=== PATIENT | male | born 1945 | race Caucasian/White ===

== ENCOUNTER 2018-06-11 05:25 | Day surgery (SDC) | payer OTHER ==
[~2018-06-11] VITALS: Ht 195.6 cm; Wt 104.3 kg
--- NOTE | ~2018-06-11 | O ---
[facility] [place] [address] OPERATIVE REPORT Name: REN BURT Room #: 150-2 [facility]#: [id number] Admission: 06/11/18 Attend Phys: Eugene Najera MD Discharge: Date of : 47 Report #: [id number] THIS REPORT FOR: //name// CC: Shaun Najera DATE OF SERVICE: 06/11/[address] Eugene Najera and Dr. Shaun Chen. PREOPERATIVE DIAGNOSIS: Left inguinal hernia. POSTOPERATIVE DIAGNOSIS: Left inguinal hernia. PROCEDURE: Left inguinal hernia repair with Prolene hernia system mesh. SURGEON: Eugene Najera MD ANESTHESIA: Local IV sedation. DESCRIPTION OF PROCEDURE: The patient was brought to the operating room and placed on the operative table in the supine position. Sequential compression devices were in place for DVT prophylaxis. There was no indication for preoperative antibiotics. The patient underwent IV sedation. Left inguinal area was prepped and draped in a sterile fashion. Skin and subcutaneous tissue were then infiltrated with 0.5% Marcaine and 1% Xylocaine in a 1:1 mixture. A left inguinal skin incision was then performed using #10 scalpel blade. Hemostasis obtained using electrocautery as well as clamps and 2-0 chromic ties. The external oblique fascia was then identified and incised with a knife and opened with the Metzenbaum scissors. The ilioinguinal nerve was identified, dissected free, injected with the local mixture and preserved. The cord was then elevated, held in place with a Teto drain. Cremasteric muscle fibers were then split in the direction of fibers using clamp and electrocautery. There was no indirect inguinal hernia sac. The floor was inspected and there was a moderate sized direct inguinal hernia defect. This hernia sac was dissected free from the cord and then opened just above the level of the floor and reduced back through the floor into the preperitoneal space, which was then developed with blunt dissection. An extended Prolene hernia system mesh was then inserted through the floor and the underlay patch was then deployed in the preperitoneal space and the connector left in the floor. Floor was then tightened around the connector using running 2-0 Prolene two layer shouldice repair. The overlay patch was then deployed into the inguinal canal and was secured at the pubic tubercle with the same running 2-0 Prolene suture. Mesh was secured superiorly and at the connector using simple interrupted 2-0 Vicryl sutures. The mesh was split and wrapped around the cord, secured to the [address] [address] OPERATIVE REPORT Name: REN BURT Room #: 150-2 [facility]..#: [id number] Admission: 06/11/18 Attend Phys: Eugene Najera MD Discharge: Date of : 47 Report #: [id number] inguinal ligament with the 2-0 Vicryl suture. The cord and the ilioinguinal nerve were then returned to the canal intact. The external oblique fascia was then closed using running 2-0 Vicryl suture. Poncho's fascia was then reapproximated using 3 simple interrupted 2-0 chromic sutures and the skin then closed with a running 4-0 subcuticular Vicryl stitch. The wound was then dressed with Mastisol, 1/2-inch Steri-Strips cut in half, Telfa, 4 x 4 gauze, sponge and tape. The patient was then awakened from the IV sedation, taken to recovery room awake, alert and in good condition. Estimated blood loss was approximately 5 mL and the patient tolerated procedure well. All sponge, lap and instrument counts correct x 2. <ELECTRONICALLY SIGNED> By: Eugene Najera MD 06/11/18 1433 [id number] Eugene Najera MD /nt
[~2018-06-11 05:25] MED LIST: ALLERGY10 M2 PO; ASPIR 8181 MG PO; CINNAMON500 MG PO; ZOCOR20 MG PO; ZOLOFT25 MG PO
[2018-06-11 09:17] VITALS: BP 145/77
[2018-06-11] MEDS ORDERED: NORCO 10-325 T1 EACH PO (13:20)
[2018-06-11 13:30] VITALS: BP 145/77
== END 2018-06-11 14:20 | disposition home or self-care (01) ==
LOC: OR 05:25 → TBA 05:25 → OR 12:30
DX: K40.90 Unilateral inguinal hernia, without obstruction or gangrene, not specified as recurrent (principal); E78.00 Pure hypercholesterolemia, unspecified; K21.9 Gastro-esophageal reflux disease without esophagitis; F43.21 Adjustment disorder with depressed mood; F17.210 Nicotine dependence, cigarettes, uncomplicated; Z88.8 Allergy status to other drugs, medicaments and biological substances; Z85.828 Personal history of other malignant neoplasm of skin; Z98.890 Other specified postprocedural states; Z79.899 Other long term (current) drug therapy; Z79.82 Long term (current) use of aspirin
CPT/HCPCS: 50010; 50101; 50386; 50417; 54111; 56524; 56526; 56528; 62110; 62900; 70005